=== PATIENT | female | born 1960 | race Caucasian/White ===

== ENCOUNTER → 2017-03-05 | Outpatient (CLI) | payer OTHER ==
[~2017-03-05] MED LIST: 'TENORMIN50 MG PO; AMOXICILLIN500 MG PO; ATENOLOL50 MG PO; CATAFLAM50 MG PO; DAYPRO600 M1 PO; FLEXERIL5 MG PO; HYDROCODONE BIT1 T11 PO; HYDROXYZINE PAM25 MG PO; INSULIN SHOT; JANUVIA100 MG PO; LASIX40 MG PO; LIDODERM5% TP; LIPITOR40 MG PO; LOPID600 MG PO; LYRICA100 MG PO; LYRICA75 M1 PO; MACROBID100 M1 PO; METFORMIN500 MG PO; POTASSIUM20 MEQ PO; PREDNISONE20 M1 PO; PRILOSEC20 M1 PO; SYNTHROID0.075 MG PO; TRAMADOL HCL50 MG PO; VICODIN 5/500 505 MG PO; VISTARIL50 MG PO; VYTORIN 10 MG-41 TA2 PO
== END | disposition home or self-care (01) ==
LOC: RAD 09:08
DX: M47.817 Spondylosis without myelopathy or radiculopathy, lumbosacral region (principal); M48.07 Spinal stenosis, lumbosacral region

== ENCOUNTER 2019-07-23 13:30 | Emergency (ER) | payer OTHER ==
[~2019-07-23] VITALS: Ht 160 cm; Wt 89.8 kg
[2019-07-23] MEDS ORDERED: ROBAXIN-750750 MG PO (16:45)
[2019-07-23] MEDS ORDERED: IBUPROFEN600 MG PO (16:45)
== END 2019-07-23 17:05 | disposition home or self-care (01) ==
LOC: ED 13:30
DX: S13.4XXA Sprain of ligaments of cervical spine, initial encounter (principal); S40.012A Contusion of left shoulder, initial encounter; S60.212A Contusion of left wrist, initial encounter; M54.6 Pain in thoracic spine; I10 Essential (primary) hypertension; E11.9 Type 2 diabetes mellitus without complications; E78.00 Pure hypercholesterolemia, unspecified; Z88.1 Allergy status to other antibiotic agents; Z88.8 Allergy status to other drugs, medicaments and biological substances; Z79.899 Other long term (current) drug therapy; V47.5XXA Car driver injured in collision with fixed or stationary object in traffic accident, initial encounter; Y93.89 Activity, other specified; Y92.89 Other specified places as the place of occurrence of the external cause; Y99.9 Unspecified external cause status

== ENCOUNTER → 2020-12-17 | Outpatient (CLI) | payer OTHER ==
[~2020-12-17] MED LIST changes: +IBUPROFEN600 MG PO; +ROBAXIN-750750 MG PO
== END | disposition home or self-care (01) ==
LOC: US 15:55
PROVIDERS: ATTEND Physician Assistant
DX: M79.661 Pain in right lower leg (principal)

== ENCOUNTER → 2021-04-26 | Outpatient (CLI) | payer OTHER | END | disposition home or self-care (01) | LOC: CARD 03-21 10:00 | PROVIDERS: ATTEND Physician Assistant | DX: R00.2 Palpitations (principal) ==